=== PATIENT | male | born 1945 | race Hispanic/Latino ===

== ENCOUNTER → 2018-08-14 | Day surgery (SDC) | payer MEDICARE ==
[~2018-08-14] MED LIST: CEFTRIAXONE SOD 1 GM/NS 50 ML 50 ML IV ONE; DEXAMETHASONE SOD PHOS INJ 4 MG/ML VIAL ONE; EPHEDRINE SULFATE INJ 50 MG/10 ML SYR ONE; FENTANYL CITRATE/PF 100MCG/2 ML INJ ONE; IBUPROFEN400 MG PO; IOPAMIDOL 610MG/1ML 300 MG/ML VIAL IV ONE; LIDOCAINE HCL 2% LOCAL INJ 5 ML SDV VIAL INJ ONE; LISINOPRIL10 MG PO; MIDAZOLAM HCL 2 MG/2 ML VIAL ONE; ONDANSETRON HCL INJ 2MG/ML 2ML 2 MG/ML VIAL ONE; PREDNISONE20 MG PO; PROPOFOL IV EMULSION 10 MG/ML 20 ML VIAL ONE; SEVOFLURANE INHAL SOLN 250 ML PEN BTL ONE
--- OUTSIDE RECORDS SUMMARY | 2018-08-14 14:01 | XMS REPORT ---
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 Allergies, Adverse Reactions, Alerts Allergy Name Allergy Type Status Severity Reaction(s) Onset Date Inactive Date Treating Clinician Comments No Known Allergies DA Active U 2018-07-17 00:00:00 No Known Allergies DA Active U 2018-07-15 00:00:00 Medications This patient has no known medications. Encounters Start Date/Time End Date/Time Encounter Type Admission Type Attending Clinicians Care Facility Care Department Encounter ID 2018-08-10 18:19:51 2018-08-10 18:19:51 Emergency [facility] [id number] 2018-08-10 17:17:16 2018-08-10 17:17:16 Emergency [facility] [id number] Results Test Description Test Time Test Comments Text Results Atomic Results Result Comments - XR FLUOROSCOPY 0-60 MIN 2018-07-17 14:21:00 FAX: Jean De Dios MD [phone] [place]: St: [facility] FAX: Emeka Vickers MD [phone] Name: WILLIAM SOTO [facility] : 1945 Age/S: 72/M [address] [place] [address] Unit #: [id number] Loc: [place]ina[place]IGINIO Webb [address] Phys: Emeka Pedroza MD Acct: [id number] Dis Date: Status[facility] PHONE #: [phone] Exam Date: 07/17/2018 1355 FAX #: [phone] Reason: STENT,RIGHT FILLING DEFECT EXAMS: CPT CODE: [id number] XR FLUOROSCOPY 0-60 MIN 39729 Intraprocedural fluoroscopy was provided by the Department of Radiology. Any images obtained were interpreted by the surgeon intraoperatively. Reference air kerma: 11.8 mGy, fluoroscopy time 29 seconds SL: [id number] at 1428 Reported and signed by: Mauro Oates M.D. CC: Jean Stanton MD; Emeka Pedroza MD Technologist: RT Sarah(R) Trnscrd Date/Time/By: 07/17/2018 (6646) : By: [email or web address] Orig Print D/T: S: 07/17/2018 (3643) PAGE 1 Signed Report - XR CHEST 2 V 2018-07-15 15:11:00 FAX: Jean De Dios MD [phone] [place]: St: PRE FAX: Emeka Vickers MD [phone] Name: WILLIAM SOTO [facility] : 1945 Age/S: 72/M [address] [place] [address] Unit #: [id number] Loc: [place] [address] Phys: Emeka Pedroza MD Acct: [id number] Dis Date: Status: PRE SDC PHONE #: [phone] Exam Date: 07/15/20181509 FAX #: [phone] Reason: STRICTURE EXAMS: CPT CODE: [id number] XR CHEST 2 V 54009 Clinical Indication: STRICTURE Comparison: None FINDINGS: The frontal and lateral chest radiographs show hyperinflated lung volumes with emphysematous changes. No interstitial or airspace opacities are seen. No pleural effusions are present. No pneumothorax is seen. The heart is normal in size. The trachea is midline. There are no clinically significant osseous abnormalities noted. IMPRESSION: No chest radiographic evidence of acute cardiopulmonary disease. COPD lungs. SL: [id number] at 1511 Reported and signed by: Cornelius Quinones M.D. CC: Jean Stanton MD; Emeka Pedroza MD Technologist: MASOUD Cronin RT(R) Trnscrd Date/Time/By: 07/15/2018 (1511) : By: [email or web address] Orig Print D/T: S: 07/15/2018 (4018) PAGE 1 Signed Report BASIC METABOLIC PANEL 2018-07-15 15:04:00 SODIUM (test code=NA) 140 mEq/L 134-147 POTASSIUM (test code=K) 4.3 mEq/L 3.4-5.0 CHLORIDE (test code=CL) 110 mEq/L 100-108 CARBON DIOXIDE (test code=CO2) 25 mEq/L 21-33 ANION GAP (test code=GAP) 9 0-20 GLUCOSE (test code=GLU) 98 mg/dL 70-110 BLOOD UREA NITROGEN (test code=BUN) 22 mg/dL 7-18 GLOMERULAR FILTRATION RATE (test code=GFR) 50.0 70-80 Units of measure=ml/min/1.73 m2 CREATININE (test code=CREAT) 1.4 mg/dL 0.6-1.3 CALCIUM (test code=CA) 8.6 mg/dL 8.0-10.5 CBC W/AUTO [id number] 15:01:00* Test Item Value Reference Range Comments WHITE BLOOD CELL (test code=WBC) 8.18 x10 3/uL 4.5-11.0 RED BLOOD CELL (test code=RBC) 4.90 x10 6/uL 4.00-5.60 HEMOGLOBIN (test code=HGB) 14.2 g/dL 12.5-16.9 HEMATOCRIT (test code=HCT) 44.0 % 37.5-50.7 MEAN CELL VOLUME (test code=MCV) 89.8 fL 81.0-99.0 MEAN CELL HGB (test code=MCH) 29.0 pg 27.0-33.0 MEAN CELL HGB CONCETRATION (test code=MCHC) 32.3 g/dL 33.0-37.0 RED CELL DISTRIBUTION WIDTH CV (test code=RDW) 14.2 % 11.5-14.5 RED CELL DISTRIBUTION WIDTH SD (test code=RDW-SD) 46.5 fL 37.0-54.0 PLATELET COUNT (test code=PLT) 288 x10 3/uL 150-400 MEAN PLATELET VOLUME (test code=MPV) 8.8 fL 7.0-9.0 NEUTROPHIL % (test code=NT%) 79.7 % 56.0-77.0 IMMATURE GRANULOCYTE % (test code=IG%) 0.5 % 0.0-2.0 LYMPHOCYTE % (test code=LY%) 12.8 % 14.0-32.0 MONOCYTE % (test code=MO%) 4.8 % 4.8-9.0 EOSINOPHIL % (test code=EO%) 1.6 % 0.3-3.7 BASOPHIL % (test code=BA%) 0.6 % 0.0-2.0 NUCLEATED RBC % (test code=NRBC%) 0.0 % 0-0 NEUTROPHIL # (test code=NT#) 6.52 x10 3/uL 2.0-7.6 IMMATURE GRANULOCYTE # (test code=IG#) 0.04 x10 3/uL 0.00-0.03 LYMPHOCYTE # (test code=LY#) 1.05 x10 3/uL 1.0-3.8 MONOCYTE # (test code=MO#) 0.39 x10 3/uL 0.1-0.8 EOSINOPHIL # (test code=EO#) 0.13 x10 3/uL 0.0-0.2 BASOPHIL # (test code=BA#) 0.05 x10 3/uL 0.0-0.2 NUCLEATED RBC # (test code=NRBC#) 0.00 x10 3/uL 0.0-0.1 MANUAL DIFF REQUIRED (test code=MDIFF) NO
--- OUTSIDE RECORDS SUMMARY | 2018-08-14 14:01 | XMS REPORT | Clinical Summary ---
Author Author [facility] Address Unknown Phone Unavailable Care Team Providers Care Central Sterile Tech Name Role Phone Asked, No Pcp PCP Unavailable Allergies No Known Allergies Medications End Date Status Medication Sig Dispensed Refills Start Date Active acetaminophen-codeine TOMESE POR 0 (TYLENOL WITH CODEINE #3) VIA ORAL 1 9 300-30 mg per tablet TABLETA CADA 4 A 6 HORAS CUANDO SEA NECESARIO DOLOR Active ciprofloxacin (CIPRO) 500 TOMESE POR 0 MG tablet VIA ORAL 1 9 TABLETA CADA 12 HORAS HASTA TERMINAR. JCARLOS LACTEOS O DERIVADOS Active COMBIVENT RESPIMAT 20-100 INHALE POR 0 mcg/actuation mist VIA ORAL UN 9 inhaler SPRAY 3 VECES AL BEA PARA LA RESPIRACION DIFICULTOSA Active levalbuterol (XOPENEX INHALE POR 0 HFA) 45 mcg/actuation VIA ORAL 2 9 inhaler SPRASY 4 VECES AL BEA Active lisinopril-hydrochlorothi TOMESE RIAZ 0 azide TABLETA POR 9 (PRINZIDE,ZESTORETIC) LA BOCA RIAZ 20-25 mg per tablet VEZ CADA BEA PARA LA PRESION DE LA CORBIN Active sertraline (ZOLOFT) 50 MG TOMESE RIAZ 0 201 tablet TABLETA POR 9 LA BOCA RIAZ VEZ CADA BEA Active tamsulosin (FLOMAX) 0.4 TOMESE POR 0 201 mg capsule VIA ORAL 1 9 CAPSULA RIAZ VEZ AL BEA EN LA NOCHE Active Problems No known active problems Encounters Care Team Description Date Type Specialty Emeka Pedroza MD RIGHT EXTRACORPOREAL SHOCKWAVE LITHOTRIPSY (ESWL) 07/26/2018 Surgery General Surgery OracioAlvinacy 07/26/2018 Anesthesia General Surgery Event Emeka Pedroza MD Preop testing 07/26/2018 Hospital General Surgery Encounter Emeka Pedroza MD 07/25/2018 Hospital Radiology Encounter Emeka Pedroza MD 07/25/2018 Hospital Radiology Encounter Emeka Pedroza MD Preop testing (Primary Dx) 07/25/2018 Pre-Admit Pre-Admission Testing Testing Appointment after 08/13/2017 Family History Medical History Relation Name Comments No Known Problems Father No Known Problems Mother Relation Name Status Comments Father Mother Social History Date Tobacco Use Types Packs/Day Years Used Never Smoker Smokeless Tobacco: Never Used Alcohol Use Drinks/Week oz/Week Comments Yes 1 Cans of 0.6 weekly beer Sex Assigned at Date Recorded Not on file Industry Job Start Date Occupation Not on file Not on file Not on file Travel End Travel History Travel Start No recent travel history available. Last Filed Vital Signs Time Taken Vital Sign Reading 07/26/2018 4:20 PM CDT Blood Pressure 170/81 07/26/2018 4:20 PM CDT Pulse 81 07/26/2018 3:36 PM CDT Temperature 36.7 C (98 F) 07/26/2018 4:20 PM CDT Respiratory Rate 18 07/26/2018 4:20 PM CDT Oxygen Saturation 97% - Inhaled Oxygen - Concentration 07/26/2018 12:38 PM CDT Weight 82.8 kg (182 lb 8 oz) 07/26/2018 12:38 PM CDT Height 175.3 cm (5' 9") 07/26/2018 12:38 PM CDT Body Mass Index 26.95 Plan of Treatment Health Maintenance Due Date Last Done Comments COLONOSCOPY SCREENING 1996 SHINGLES VACCINES (#1) 1996 65+ PNEUMOCOCCAL VACCINE 11/15/2011 (1 of 2 - PCV13) INFLUENZA VACCINE 10/03/2018 Procedures Comments Procedure Name Priority Date/Time Associated Diagnosis EXTRACORPOREAL SHOCKWAVE 07/26/2018 kidney stone LITHOTRIPSY (ESWL) 2:30 PM CDT N20.0 Special Needs NEXT MED CONF# [id number] AK AN ELECTIVE Routine 07/26/2018 SUPRAGLOTTIC AIRWAY 2:23 PM CDT Procedure Note - Alvina Narayanancy - 07/26/2018 2:23 PM CDT Airway Date/Time: 07/26/2018 2:13 PM Performed by: Clay Narayanan Authorized by: German Tang MD Location: OR Urgency: Elective Difficult Airway: No Anesthesio logist: German Tang MD Resident/C RNA/AA: Clay Narayanan Performed by: resident/C RNA/AA Preoxygena chidi with 100% O2: Yes Mask Ventilatio n: Not attempted Final Airway Type: Supraglott ic airway Final LMA: Unique LMA Size: 5 Number of Attempts at Approach: 1 XR CHEST 2 VW Routine 07/25/2018 Preop testing 3:15 PM CDT XR KUB KIDNEY URETER Routine 07/25/2018 Preop testing BLADDER 3:15 PM CDT ECG 12-LEAD Routine 07/25/2018 Preop testing 2:21 PM CDT ESTIMATED GFR Routine 07/25/2018 2:20 PM CDT BASIC METABOLIC PANEL Routine 07/25/2018 Preop testing 2:20 PM CDT HC COMPLETE BLD COUNT Routine 07/25/2018 Preop testing W/AUTO DIFF 2:20 PM CDT after 08/13/2017 Results * XR Kub Kidney Ureter Bladder (07/25/2018 3:15 PM CDT) Specimen Narrative Performed At EXAMINATION:XR KUB KIDNEY URETER BLADDER [facility] CLINICAL HISTORY:Z01.818 Encounter for other preprocedural examination, preop COMPARISON:None. FINDINGS: Double-J ureteral stent on the right. Upper quadrant L1-2 level. Lower coil project over right lower mid pelvis Nonobstructed bowel gas pattern. Scattered fecal material in the colon. Right total hip prosthesis partially imaged Severe degenerative changes left hip Considerable compressive changes L1. Severe degenerative changes upper mid lumbar region IMPRESSION: Double-J ureteral stent on the right Nonobstructive bowel gas pattern Severe degenerative changes left hip Considerable compressive deformity L1 [id number] Procedure Note Hm Interface, Radiology Results Incoming - 07/25/2018 4:00 PM CDT EXAMINATION: XR KUB KIDNEY URETER BLADDER CLINICAL HISTORY: Z01.818 Encounter for other preprocedural examination, preop COMPARISON: None. FINDINGS: Double-J ureteral stent on the right. Upper quadrant L1-2 level. Lower coil project over right lower mid pelvis Nonobstructed bowel gas pattern. Scattered fecal material in the colon. Right total hip prosthesis partially imaged Severe degenerative changes left hip Considerable compressive changes L1. Severe degenerative changes upper mid lumbar region IMPRESSION: Double-J ureteral stent on the right Nonobstructive bowel gas pattern Severe degenerative changes left hip Considerable compressive deformity L1 [facility] [place][id number] Performing Organization Address [facility] Phone Number [facility] [address] [place] [address] * XR Chest 2 Vw (07/25/2018 3:15 PM CDT) Specimen Narrative Performed At EXAMINATION:XR CHEST 2 VW [facility] CLINICAL HISTORY:Z01.818 Encounter for other preprocedural examination, preop COMPARISON:None IMPRESSION: No acute abnormality 2 view chest The lungs are clear. The heart is not enlarged. Mild vascular ectasia and atherosclerosis Moderate degenerative changes thoracic spine and shoulders [facility] [place]-[id number] Procedure Note Interface, Radiology Results Incoming - 07/25/2018 3:59 PM CDT EXAMINATION: XR CHEST 2 VW CLINICAL HISTORY: Z01.818 Encounter for other preprocedural examination, preop COMPARISON: None IMPRESSION: No acute abnormality 2 view chest The lungs are clear. The heart is not enlarged. Mild vascular ectasia and atherosclerosis Moderate degenerative changes thoracic spine and shoulders [facility] [place]-[id number] Performing Organization Address [facility] Phone Number [facility] [address] [place] [address] * ECG 12 lead (07/25/2018 2:21 PM CDT) Ventricular 85 [facility] rate Atrial rate 85 [facility] AK interval 140 [facility] QRSD interval 84 [facility] QT interval 370 [facility] QTC interval 440 [facility] P axis 1 33 [facility] QRS axis 1 52 [facility] T wave axis 60 [facility] EKG impression Normal sinus rhythm-Normal [facility] ECG-No previous ECGs available- Specimen Narrative Performed At Performing Organization Address [facility] Phone Number [facility] MUSE [address] [place] [address] * Estimated GFR (07/25/2018 2:20 PM CDT) Pathologist [facility] Estimated GFR 46 (A) mL/min/1.73 m2 [place] Comment: [facility] rpretation G1 >=90 Normal or high G2 60-89Mildly decreased A6k19-28 Mildly to moderately decreased P7k05-20 Moderately to severely decreased G4 15-29Severely decreased G5 <15Kidney failure The eGFR was calculated using the Chronic Kidney Disease Epidemiology Collaboration (CKD-EPI) equation. Interpretation is based on recommendations of the National Kidney Foundation-Kidney Disease Outcomes Quality Initiative (NKF-KDOQI) published in 2014. Specimen Plasma specimen Performing Organization Address City/State/Zipcode Phone Number [facility] [address] [place] [address] PATHOLOGY AND GENOMIC MEDICINE [facility] [address] [place], [place] [id number] [place] [address] * CBC with platelet and differential (07/25/2018 2:20 PM CDT) [facility] WBC 6.71 4.50 - 11.00 k/uL [facility] RBC 4.65 4.40 - 6.00 m/uL [facility] HGB 13.6 (L) 14.0 - 18.0 g/dL [facility] HCT 42.3 41.0 - 51.0 % [facility] MCV 91.0 82.0 - 100.0 fL [facility] MCH 29.2 27.0 - 34.0 pg [facility] MCHC 32.2 31.0 - 37.0 g/dL [facility] RDW - SD 46.3 37.0 - 55.0 fL [facility] MPV 8.9 8.8 - 13.2 fL [facility] Platelet count 299 150 - 400 k/uL [facility] Nucleated RBC 0.00 /100 WBC [facility] Neutrophils 63.1 39.0 - 69.0 % [facility] Lymphocytes 18.2 (L) 25.0 - 45.0 % [facility] Monocytes 8.5 0.0 - 10.0 % [facility] Eosinophils 9.2 (H) 0.0 - 5.0 % [facility] Basophils 0.6 0.0 - 1.0 % [facility] Specimen Blood Performing Organization Address City/[facility]/Zipcode Phone Number [facility] [address] [place] [address] PATHOLOGY AND GENOMIC MEDICINE [address] * Basic metabolic panel (07/25/2018 2:20 PM CDT) Sodium 141 135 - 148 mEq/L [facility] Potassium 4.8 3.5 - 5.0 mEq/L [facility] Chloride 107 98 - 112 mEq/L [facility] CO2 21 (L) 24 - 31 mEq/L [facility] Anion gap 13@ANIO 7 - 15 mEq/L [facility] BUN 26 (H) 8 - 23 mg/dL [facility] Creatinine 1.50 (H) 0.70 - 1.20 mg/dL [facility] Glucose 94 65 - 99 mg/dL [facility] Calcium 9.7 8.8 - 10.2 mg/dL [facility] Specimen Plasma specimen Performing Organization Address City/[facility] Phone Number [facility] DEPARTMENT [address] [place] [address] PATHOLOGY AND GENOMIC MEDICINE [address] after 08/13/2017 Insurance Type Payer Benefit Subscriber ID Effective Phone Address Plan / Dates Group HMO [employer] xxxxxxxxx 2018-P -AMERIVANT resent AGE MCR O Advance Directives Patient has advance care planning documents on file. For more information, cydney morel contact: Jadiel Omer [address] [place] [address]
--- OUTSIDE RECORDS SUMMARY | 2018-08-14 14:01 | XMS REPORT | Clinical Summary ---
Author Author [facility] Organization [facility] Address Unknown Phone Unavailable Care Team Providers Care Printed Circuit Board Preassembler Name Role Phone PCP Unavailable Allergies Comments Active Allergy Reactions Severity Noted Date No Known Allergies 09/01/2008 Medications End Date Status Medication Sig Dispensed Refills Start Date Active CYCLOBENZAPRINE 10 MG take 1 tablet 30 0 TABIndications: Right hip (10 mg) by 9 pain oral route once at night Active VICODIN 5 MG-500 MG take 1 tablet 15 0 TABIndications: DJD by oral route 0 (degenerative joint every 4-6 disease) of hip hours as needed for pain Active ibuprofen (MOTRIN) 800 mg Take by 90 Tab 2 tabletIndications: Right mouth. TOME 1 0 hip pain TABLETA POR LA BOCA 3 VECES AL BEA CON COMIDA Active naproxen (NAPROSYN) 500 Take 1 Tab by 60 Tab 2 mg tabletIndications: LBP mouth 2 times 0 (low back pain) daily (with meals). 08/16/2018 Active predniSONE (DELTASONE) 20 Take 2 10 tablet 0 mg tabletIndications: tablets by 9 Uncomplicated asthma, mouth daily unspecified asthma for 5 days. severity, unspecified whether persistent Active Problems Problem Noted Date DJD (degenerative joint disease) of hip 10/01/2008 Encounters Care Team Description Date Type Specialty Meño Fried MD Uncomplicated asthma, unspecified asthma severity, unspecified whether persistent (Primary Dx) 08/10/2018 Emergency Emergency Medicine 08/10/2018 Travel after 08/13/2017 Immunizations Name Administration Dates Next Due PPV 23 Pneumococcal 08/24/2009 Polysaccaride Social History Date Tobacco Use Types Packs/Day Years Used Never Smoker Drinks/Week oz/Week Comments Alcohol Use No Sex Assigned at Date Recorded Not on file Industry Job Start Date Occupation Not on file Not on file Not on file Travel End Travel History Travel Start No recent travel history available. Last Filed Vital Signs Reading Time Taken Comments Vital Sign 132/63 08/10/2018 9:00 PM CDT Blood Pressure 99 08/10/2018 9:00 PM CDT Pulse 36.7 C (98 F) 08/10/2018 9:00 PM CDT Temperature 22 08/10/2018 9:00 PM CDT Respiratory Rate 96% 08/10/2018 9:00 PM CDT Oxygen Saturation - - Inhaled Oxygen Concentration 80.7 kg (178 lb) 08/10/2018 4:46 PM CDT Weight - - Height 27.88 12/20/2009 2:21 PM CDT Body Mass Index Plan of Treatment Health Maintenance Due Date Last Done Comments Colorectal Cancer Scrn 1996 Annual (FIT/FOBT) Age 50 to 75 IMM Pneumococcal Age 65 11/15/2011 and Up IMM Influenza Seasonal 12/03/2018 Oct to May (>/=19 yrs) Procedures Comments Procedure Name Priority Date/Time Associated Diagnosis URINE CULTURE STAT 08/10/2018 6:40 PM CDT URINALYSIS STAT 08/10/2018 6:40 PM CDT URINALYSIS STAT 08/10/2018 6:40 PM CDT XRAY CHEST 1 VIEW STAT 08/10/2018 Uncomplicated asthma, 6:34 PM CDT unspecified asthma severity, unspecified whether persistent CBC STAT 08/10/2018 6:29 PM CDT BASIC METABOLIC PANEL STAT 08/10/2018 6:29 PM CDT CBC/DIFF STAT 08/10/2018 6:29 PM CDT 12 LEAD EKG Routine 08/10/2018 4:56 PM CDT after 08/13/2017 Results * URINALYSIS (08/10/2018 6:40 PM CDT) Color Yellow Colorless, Straw, [facility] Yellow Clarity Hazy (A) Clear [facility] Spec [place], 1.011 1.001 - 1.035 [facility] Ur pH, Ur 6.0 5.0 - 8.0 [facility] Protein, Ur 2+ (A) Negative mg/dL [facility] Glucose, Ur Negative Negative mg/dL [facility] Ketone, Ur Negative Negative mg/dL [facility] Bilirubin, Ur Negative Negative mg/dL [facility] Nitrite, Ur Negative Negative [facility] Leukocyte 1+ (A) Negative mg/dL [facility] Blood, Ur 2+ (A) Negative mg/dL [facility] RBC 23 (H) 0 - 4 /HPF [facility] WBC 21 (H) 0 - 5 /HPF [facility] Mucous Present (A) None seen /HPF [facility] Urobilinogen, <1.0 <1.0 EU/dL [facility] Ur Specimen Urine Performing Organization Address [facility] Phone Number [facility] [address] [place] [address] * URINE CULTURE (08/10/2018 6:40 PM CDT) Urine Culture No growth 2 days [facility] Specimen Urine - Clean Catch [place] Performing Organization Address [facility] Phone Number [facility] [address] [place] [address] * XRAY CHEST 1 VIEW (08/10/2018 6:34 PM CDT) Specimen Impressions Performed At IMPRESSION: [facility] No acute cardiopulmonary abnormality. This [facility] radiology report is a preliminary resident dictation until finalized by an attending.Changes to this preliminary report may occur in an additional preliminary or finalized version. Dictated By: Hussain Negron MD, 08/10/2018 6:37 PM I have reviewed the study and agree with the findings in this report. Signed By: René Chen MD, 08/10/2018 6:37 PM Narrative Performed At EXAM: XR CHEST 1 VIEW SMS DATE: 08/10/2018 6:34 PM INDICATION: hx asthma, worsening SOB and cough. Uncomplicated asthma, unspecified asthma severity, unspecified whether persistent COMPARISON: None TECHNIQUE: AP chest FINDINGS: Lines, tubes and hardware: None. Lungs and pleura: The lungs are clear. The costophrenic sulci are sharp, without pleural effusion. Heart and mediastinum: The heart size is normal for technique. The mediastinal contours are normal. Bones: No acute bony abnormality. Procedure Note Interface, Rad/Mammog In - 08/10/2018 6:42 PM CDT EXAM: XR CHEST 1 VIEW DATE: 08/10/2018 6:34 PM INDICATION: hx asthma, worsening SOB and cough. Uncomplicated asthma, unspecified asthma severity, unspecified whether persistent COMPARISON: None TECHNIQUE: AP chest FINDINGS: Lines, tubes and hardware: None. Lungs and pleura: The lungs are clear. The costophrenic sulci are sharp, without pleural effusion. Heart and mediastinum: The heart size is normal for technique. The mediastinal contours are normal. Bones: No acute bony abnormality. IMPRESSION IMPRESSION: No acute cardiopulmonary abnormality. This [facility] radiology report is a preliminary resident dictation until finalized by an attending. Changes to this preliminary report may occur in an additional preliminary or finalized version. Dictated By: Hussain Negron MD, 08/10/2018 6:37 PM I have reviewed the study and agree with the findings in this report. Signed By: René Chen MD, 08/10/2018 6:37 PM Performing Organization Address City/State/Zipcode Phone Number SMS * CBC (08/10/2018 6:29 PM CDT) WBC 7.6 4.5 - 12.0 K/uL [facility] RBC 5.10 4.60 - 6.20 M/uL [facility] Hemoglobin 14.9 14.0 - 18.0 g/dL [facility] Hematocrit 47.4 40.0 - 54.0 % [facility] MCV 92.9 (H) 82.0 - 92.0 fL [facility] MCH 29.2 27.0 - 31.0 pg [facility] MCHC 31.4 (L) 32.0 - 36.0 g/dL [facility] RDW 46.5 (H) 35.1 - 43.9 fL [facility] Platelet 318 150 - 400 K/uL [facility] Mean Platelet 10.2 9.4 - 12.4 fL [facility] Volume Percent NRBC 0.0 % [facility] Neutrophil 65.0 34.0 - 67.9 % [facility] Lymphocyte 17.8 (L) 21.8 - 50.0 % [facility] Monocyte 6.3 5.3 - 12.0 % [facility] Eosinophil 9.4 (H) 0.8 - 5.0 % [facility] Basophil 1.1 0.2 - 1.2 % [facility] Pct Immat Gran 0.4 0.0 - 0.5 % [facility] Neutrophil, Abs 4.94 1.78 - 5.36 K/uL [facility] Lymphocyte, Abs 1.35 1.32 - 3.57 K/uL [facility] Monocyte, Abs 0.48 0.30 - 0.82 K/uL [facility] Eosinophil, Abs 0.71 (H) 0.04 - 0.54 K/uL [facility] Basophil, Abs 0.08 0.01 - 0.08 K/uL [facility] Absol Immat 0.03 0.00 - 0.03 K/uL [facility] Gran Absolute 0.00 K/uL [facility] NRBC-CV Specimen Blood Performing Organization Address [facility] Phone Number [facility] [address], [place] [phone] * BASIC METABOLIC PANEL (08/10/2018 6:29 PM CDT) Sodium 136 136 - 145 mmol/L [facility] Potassium 4.3 3.5 - 5.1 mmol/L [facility] Chloride 105 98 - 107 mmol/L [facility] CO2 20 (L) 21 - 31 mmol/L [facility] Urea Nitrogen 22.0 7.0 - 25.0 mg/dL [facility] Creatinine 1.5 (H) 0.7 - 1.3 mg/dL [facility] Glucose 100 70 - 110 mg/dL [facility] Calcium, Total 9.0 8.6 - 10.3 mg/dL [facility] GFR, Estimated 46 mL/min/1.73 m2 [facility] Anion Gap 11 5 - 16 mmol/L [facility] Specimen Blood Performing Organization Address [facility] Phone Number [facility] [address], [place] [phone] * 12 LEAD EKG (08/10/2018 4:56 PM CDT) 12 LEAD EKG FOR [facility] Test Date:2018-08-10 Pat Name: WILLIAM Stratton artment: Room: Gender: Seam Presser: AMCARENA :[id number] Requested By: FAUSTINA CORNELL Order Number: [id number] Avinash MD: Mark Wells Measurements Intervals [place] Rate: 101 P: 28 [place]: 154 QRS: 66 QRSD: 94 T:63 QT: 338 QTc:440 Interpretive Statements SINUS TACHYCARDIA WITH OCCASIONAL VENTRICULAR PREMATURE COMPLEXES Electronically Signed On 08-11-2018 7:34:24 CDT by Mark Wells Specimen Performing Organization Address City/State/Zipcode Phone Number SMS after 08/13/2017 Insurance Type Payer Benefit Subscriber ID Effective Phone Address Plan / Dates Group MEDICARE MEDICARE xxxxxxxxxxx 2011-P [phone] [id number] [place] [address] [place] [id number] xxxxxxxxx 2018- [phone] [address] Present [id number] MEDICARE [place], [place] BENEF[place]IAR [id number] Y
[2018-08-14 14:41] LABS: BASOPHILS % 0.5 % (0.0-1.0); EOSINOPHILS % 0.1 % (0.0-6.0); HEMATOCRIT 40.9 % (38.2-49.6); HEMOGLOBIN 14.1 g/dL (14.0-18.0); LYMPHOCYTES # (AUTO) 1.7 (1.0-3.2); MEAN CORPUSCULAR HEMOGLOBIN 29.5 pg (28-32); MEAN CORPUSCULAR HGB CONC 34.5 g/dL (31-35); MEAN CORPUSCULAR VOLUME 85.6 fL (81-99); MONOCYTES # (AUTO) 0.6 (0.2-0.8); MONOCYTES % 7.7 % (4.4-11.3); NEUTROPHILS # (AUTO) 5.1 (2.1-6.9); NEUTROPHILS % 68.3 % (38.7-80.0); PLATELET COUNT 368 x10e3/uL (140-360); RED BLOOD COUNT 4.78 x10e6/uL (4.3-5.7); RED CELL DISTRIBUTION WIDTH 13.6 % (11.7-14.4)
--- NOTE | 2018-08-14 15:37 | Diagnostic Imaging Report ---
EXAM: CHEST 2 VIEWS, PA and lateral DATE: 08/14/2018 Time stamp on exam: 2:46 PM INDICATION: Preoperative for cystoscopy COMPARISON: None FINDINGS: LINES/TUBES: None LUNGS: No consolidations or edema. PLEURA: No effusions or pneumothorax. HEART AND MEDIASTINUM: Normal size and contour. BONES AND SOFT TISSUES: No acute findings. Degenerative spurring of the spine. There is a significant compression abnormality of T 12 or L1. Partially visualized double-J ureteral stent seen on the lateral view. IMPRESSION: No acute thoracic abnormality. Signed by: Dr. Naresh Andrews DO on 08/14/2018 3:34 PM
[2018-08-14 16:30] VITALS: BP 135/75
--- NOTE | 2018-08-16 07:57 | Operative Report ---
DATE OF PROCEDURE: 08/14/2018 SURGEON: Emeka Pedroza MD PREOPERATIVE DIAGNOSES: 1. Right ureteral calculus. 2. Right indwelling stent. 3. Right hydronephrosis. 4. Hematuria. POSTOPERATIVE DIAGNOSES: 1. Right ureteral calculus. 2. Right indwelling stent. 3. Right hydronephrosis. 4. Hematuria. PROCEDURES: 1. Cystourethroscopy with complicated removal of right indwelling stent (entirely separate procedure in a staged fashion for complicated removal of encrusted right ureteral stent). 2. Right-sided ureteroscopy with laser lithotripsy in a staged fashion (entirely separate procedure in a staged fashion to rid the patient of obstructing ureteral calculi). 3. Supervision of fluoroscopy. 4. Interpretation of retrograde pyelography. ANESTHESIA: General. ESTIMATED BLOOD LOSS: Minimal. COMPLICATIONS: None. INDICATIONS FOR PROCEDURE: Mr. Carrillo is a 72-year-old male, who adamantly refuses to have another stent placed. He wishes to have the stent removed. He wishes to have the options, alternatives, the risks, and benefits and elected to proceed. PROCEDURE IN DETAIL: After informed consent was obtained, the patient was taken to the operative suite. He was placed supine on the operating table. He underwent general anesthesia by Anesthesia Service. He was placed in dorsal supine position and sterilely prepped and draped in standard fashion for cystoscopy. A 21-Somali cystoscope was inserted per urethra. Normal urethra was noted. Panendoscopy of bladder revealed no tumors and no stones. A stent was seen extruding through the . A guidewire was inserted alongside the stent. A stent was grasped and removed intact. Second safety wire was introduced. Flexible ureteroscope was advanced to multiple fragments of stone, these were lasered into a very small 1-2 mm fragments. The uteroscope was advanced into the level of the collecting system. A brief retrograde pyelogram was performed under fluoroscopy revealing a clear kidney with all stones easily passable. Ureteroscope was removed. The wire was removed. The patient was awakened from anesthesia and transferred to recovery room in excellent condition, no untoward effects noted. Supervision of fluoroscopy, interpretation of retrograde pyelography: present for the entire procedure and supervised fluoroscopy with ureteroscopy as well as . MD JENNIFER Aparicio/BAILEE /[id number]
== END | disposition home or self-care (01) ==
LOC: OR 13:59
PROVIDERS: ATTEND Urology
DX: N20.1 Calculus of ureter (principal); Z46.6 Encounter for fitting and adjustment of urinary device; N13.30 Unspecified hydronephrosis; D41.00 Neoplasm of uncertain behavior of unspecified kidney; N40.1 Benign prostatic hyperplasia with lower urinary tract symptoms; R39.14 Feeling of incomplete bladder emptying; N39.0 Urinary tract infection, site not specified; N52.9 Male erectile dysfunction, unspecified; R80.9 Proteinuria, unspecified; I10 Essential (primary) hypertension; J45.909 Unspecified asthma, uncomplicated; Z79.52 Long term (current) use of systemic steroids
CPT/HCPCS: 36415; 52353; 71046; 74420; 85025; 93005; J0696; J1100; J2001; J2250; J2405; J2704; Q9967